=== PATIENT | female | born 1990 | race Caucasian/White ===

== ENCOUNTER 2025-06-22 18:15 | Emergency (ER) | payer OTHER, SELFPAY ==
--- OUTSIDE RECORDS SUMMARY | 2025-05-05 08:30 | XMS_ITS ---
Author Organization [facility] es Address [address] [place] [address] Care Team Providers Care Associate Store Leader Name Role Phone Stacey Martin Primary Care Provider Gunner Colby Unavailable [phone] Dr. Karson Osman Unavailable [phone] REASON FOR VISIT EXT #7, 8 AND SEAT FLIPPER Social History Sex Assigned At : Social History Observation Description Sex Assigned At Female Encounters Encounter Location Date Provider Diagnosis [facility] [address] [facility] [place] [address] 2024 Karson Osman Plan Of Treatment Next Appt Details Provider Name:Stacey eddy, 06/25/2025 11:00:00 AM, [address] [place], [address], Progress Notes * EREN BRUNSONDOB: [birth year] (35 yo F)Acc No.[id number]:05/05/2025 Patient:?EREN BRUNSON :?Karson Osman DDSDOB:1990???Age:35 Y???Sex: FemaleDate:05/05/2025Phone:[phone]:[address] [id number]:Stacey Martin Subjective: * Chief Complaints: * E XT #7, 8 AND SEAT FLIPPER * Electronic signature of Dr. Karson Osman , DMD, [id number] on 06/22/2025 at 07:08 PM ESTSign off status: Pending * Provider: Shimon Osman DDS Date: 07/05/2024 Generated for Printing/Faxing/eTransmitting on:?06/22/2025 07:08 PM EST
--- OUTSIDE RECORDS SUMMARY | 2025-05-27 06:30 | XMS_ITS ---
Author Organization [facility] es Address [address] [place] [address] Care Team Providers Care General Accounting Manager Name Role Phone Stacey Martin Primary Care Provider [phone] Gunner Colby Unavailable [phone] REASON FOR VISIT 1 month weight check, possible UTI Social History Sex Assigned At : Social History Observation Description Sex Assigned At Female Encounters Encounter Location Date Provider Diagnosis [facility] [address] [place] [address] 05/27/2025 Stacey Martin Plan Of Treatment Next Appt Details Provider Name:Stacey eddy, 06/25/2025 11:00:00 AM, [address] [place], [address], Progress Notes * EREN BRUNSONDOB: [birth year] (35 yo F)Acc No.[id number]:05/27/2025 Progress Notes Patient: Abida EREN GODOY :?Stacey Martin NPDOB:1990???Age:35 Y ???Sex:FemaleDate:05/27/2025Phone:[phone]:[address] [id number] Subjective: * Chief Complaints: * 1 month weight check, possible UTI * Electronic signature of Stacey Martin CNP on 06/22/2025 at 07:09 PM ESTSign off status: Pending * Provider: N icole E Martin, SCREEN PRINTER HELPER Date: 07/28/2024 Generated for Printing/Faxing/eTransmitting on:?06/22/2025 07:09 PM EST
--- OUTSIDE RECORDS SUMMARY | 2025-06-05 11:45 | XMS_ITS ---
Author Organization [facility] es Address [address] [place] [address] Care Team Providers Care Parachute Marker Name Role Phone Stacey Martin Primary Care Provider [phone] Gunner Colby Unavailable [phone] REASON FOR VISIT uti, medication not working Social History Sex Assigned At : Social History Observation Description Sex Assigned At Female Encounters Encounter Location Date Provider Diagnosis [facility] [address] [place] [address] 06/05/2025 Stacey Martin Plan Of Treatment Next Appt Details Provider Name:Stacey eddy, 06/25/2025 11:00:00 AM, [address] [place], [address], Progress Notes * EREN BRUNSONDOB: [birth year] (35 yo F)Acc No.[id number]:06/05/2025 Progress Notes Patient: Abida EREN GODOY :?Stacey Martin NPDOB:1990???Age:35 Y ???Sex:FemaleDate:06/05/2025Phone:[phone]:[address] [id number] Subjective: * Chief Complaints: * U ti, medication not working * Electronic signature of Stacey Martin CNP on 06/22/2025 at 07:08 PM ESTSign off status: Pending * Provider: Ban Martin NP Date: 1 08/06/2024 Generated for Printing/Faxing/eTransmitting on:?06/22/2025 07:08 PM EST
--- OUTSIDE RECORDS SUMMARY | 2025-06-09 05:27 | XMS_ITS ---
[facility] Address [address] [place] [address] Care Team Providers Care Hoop Punch And Coiler Operator Helper Name Role Phone Stacey Martin Primary Care Provider Gunner Colby Unavailable [phone] REASON FOR VISIT med refill Medications Medication SIG (Take, Route, Frequency, Duration) Notes Start Date End Date Status Trulicity 3 MG/0.5ML Solutio n Auto-injector as directed Subcutaneous weekly; Duration: 30 days 5Active Social History Sex Assigned At : Social History Observation Description Sex Assigned At Female Encounters Encounter Location Date Provider Diagnosis [facility] [address] [place] [address] 06/09/2025 Stacey Martin Neuropathy G62.9 and Hyperinsulinemia E16.1 Assessments Encounter Date Diagnosis (ICD Code) Assessment Notes Treatment Notes Treatment Clinical Notes Section Notes 06/09/2025 Neuropathy (ICD-10 - G62.9) 06/09/2025Hyperinsulinemia (ICD-10 - E16.1) Plan Of Treatment Medication Medication Name Sig Start Date Stop Date Notes Trulicity 3 MG/0.5ML Solutio n Auto-injector as directed Subcutaneous weekly; Duration: 30 days 05/13/2025 Next Appt Details Provider Name:Stacey eddy, 06/25/2025 11:00:00 AM, [address] [place], [address], Progress Notes * EREN BRUNSONDOB: [birth year] (35 yo F)Acc No.[id number]:06/09/2025 Patient:?EREN BRUNSON :1990???Age:35 Y???Sex:FemalePhone:[phone] Address:[address] [place] [address], [address] * Refills Refill Trulicity Solution Auto-injector, 3 MG/0.5ML, Subcutaneous, 4, as directed, weekly, 30 days,Refills=0 Subjective: * Chief Complaints: * M ed refill Assessment: * Assessment: 1.?Neuropathy - G62.9???2.?Hyperinsulinemia - E16.1??? Plan: * Treatment: Refill Trulicity Solution Auto-injector, 3 MG/0.5ML, as directed, Subcutaneous, weekly, 30 days, 4,Refills 0.?? * true * Date:?Generated for Printing/Faxing/eTransmitting on:?06/22/2025 07:09 PM EST
--- OUTSIDE RECORDS SUMMARY | 2025-06-12 10:30 | XMS_ITS ---
Author Organization [facility] es Address [address] [place] [address] Care Team Providers Care Health Program Specialist Name Role Phone Stacey Martin Primary Care Provider [phone] Gunner Colby Unavailable [phone] REASON FOR VISIT 1 month weight check Social History Sex Assigned At : Social History Observation Description Sex Assigned At Female Encounters Encounter Location Date Provider Diagnosis [facility] [address] [place] [address] 06/12/2025 Stacey Martin Plan Of Treatment Next Appt Details Provider Name:Stacey eddy, 06/25/2025 11:00:00 AM, [address] [place], [address], Progress Notes * EREN BRUNSONDOB: [birth year] (35 yo F)Acc No.[id number]:06/12/2025 Progress Notes Patient: Abida EREN GODOY :?Stacey Martin NPDOB:1990???Age:35 Y ???Sex:FemaleDate:06/12/2025Phone:[phone]:[address] [id number] Subjective: * Chief Complaints: * 1 month weight check Billing Information: * Procedure Codes: * Electronic signature of Stacey Martin CNP on 06/22/2025 at 07:09 PM ESTSign off status: Pending * Provider: Ban Martin NP Date: 08/13/2024 Generated for Printing/Faxing/eTransmitting on:?06/22/2025 07:09 PM EST
--- OUTSIDE RECORDS SUMMARY | 2025-06-20 04:00 | XMS_ITS ---
Author Organization [facility] es Address [address] [place] [address] Care Team Providers Care Spanish Interpreter Name Role Phone Stacey Martin Primary Care Provider [phone] Gunner Colby Unavailable [phone] REASON FOR VISIT 1 month weight check Social History Sex Assigned At : Social History Observation Description Sex Assigned At Female Encounters Encounter Location Date Provider Diagnosis [facility] [address] [place] [address] 06/20/2025 Stacey Martin Plan Of Treatment Next Appt Details Provider Name:Stacey eddy, 06/25/2025 11:00:00 AM, [address] [place], [address], Progress Notes * EREN BRUNSONDOB: [birth year] (35 yo F)Acc No.[id number]:06/20/2025 Progress Notes Patient: Abida EREN GODOY :?Stacey Martin NPDOB:1990???Age:35 Y ???Sex:FemaleDate:06/20/2025Phone:[phone]:[address] [id number] Subjective: * Chief Complaints: * 1 month weight check Billing Information: * Procedure Codes: * Electronic signature of Stacey Martin CNP on 06/22/2025 at 07:09 PM ESTSign off status: Pending * Provider: Ban Martin NP Date: 1 08/21/2024 Generated for Printing/Faxing/eTransmitting on:?06/22/2025 07:09 PM EST
[2025-06-22 18:30] VITALS: BP 132/99; PULSE 128; TEMP 36.6; O2SAT 97; BMI 34.3
--- NOTE | 2025-06-22 18:52 | ED.GENADUL1 ---
HPI HPI - General Adult General Chief complaint: Back Pain/Injury Stated complaint: Kidney Infection Time Seen by Provider: 06/22/25 18:38 Source: patient Mode of arrival: walk-in Limitations: no limitations History of Present Illness HPI narrative: Patient is a 35-year-old female presenting to the emergency department for evaluation of UTI symptoms and flank pain. Patient states that she has been seen at [facility] emergency department 5 times in the last 8 days. She states she has had multiple CAT scans, IV antibiotics, blood work, and urinalysis. She has been on oral antibiotics for the last 5 days. However, she states that despite all of these ED visits she continues to feel worse. She is complaining pain to the left upper part of her abdomen and flank. She states she has dysuria, hematuria, increased pressure in her bladder. She denies history of kidney stones, and was not diagnosed with a kidney stone during her visit to [facility]. She denies chest pain or shortness breath. No fevers or chills. Related Data Allergies Allergy/AdvReac Type Severity Reaction Status Date / Time lorazepam (From Ativan) Allergy Intermediate Hives Verified 06/22/25 18:34 IV contrast AdvReac Severe Vomiting Uncoded 06/22/25 18:34 Review of Systems ROS Status of ROS 10 or more systems reviewed and unremarkable except as noted in history and below PFSH PFSH Social History Little interest or pleasure in doing things: not at all Feeling down, depressed, or hopeless: not at all Exam Narrative Exam Narrative: CONSTITUTIONAL: Well-appearing, no acute distress, answering questions and following commands appropriately SKIN: Was warm and dry. EYES: Sclerae white. EARS, NOSE, THROAT: Moist oral mucosa. RESPIRATORY: Clear to auscultation bilaterally, no wheezes, crackles, or stridor, no use of accessory muscles CARDIOVASCULAR: Tachycardic rate and regular rhythm. There is no S3, S4, murmur, rub. GASTROINTESTINAL: Abdomen soft, nontender, nondistended. No rebound tenderness or guarding. No CVA tenderness. MUSCULOSKELETAL: No peripheral edema. NEUROLOGIC: Patient is awake and alert. Facies were symmetrical. Constitutional Vital Signs, click to edit/add: Last Vital Signs Temp 97.9 F 06/22/25 18:30 Pulse 128 H 06/22/25 18:30 Resp 18 06/22/25 18:30 BP 132/99 H 06/22/25 18:30 Pulse Ox 97 06/22/25 18:30 O2 Del Method Room Air 06/22/25 18:30 Course Vital Signs Vital signs: Vital Signs Temperature 97.9 F 06/22/25 18:30 Pulse Rate 128 H 06/22/25 18:30 Respiratory Rate 18 06/22/25 18:30 Blood Pressure 132/99 H 06/22/25 18:30 Pulse Oximetry 97 06/22/25 18:30 Oxygen Delivery Method Room Air 06/22/25 18:30 Temperature 97.9 F 06/22/25 18:30 Pulse Rate 128 H 06/22/25 18:30 Respiratory Rate 18 06/22/25 18:30 Blood Pressure 132/99 H 06/22/25 18:30 Pulse Oximetry 97 06/22/25 18:30 Oxygen Delivery Method Room Air 06/22/25 18:30 Medical Decision Making MDM Narrative Medical decision making narrative: Patient is a 35-year-old female presenting to the personal department with 8-day history of urinary symptoms and left flank pain. She has been on 2 different antibiotics over the last 5 days, but cannot recall the name of the medications. She has been seen at [facility] 5 times in the last 8 days for the same complaint. She states she was diagnosed with a kidney infection after CT, multiple blood tests, urinalysis, and IV antibiotics. Overall, the patient is well-appearing and in no acute distress. She has normal physical examination. Differential diagnose includes UTI, pyelonephritis, viral URI. Laboratory studies were obtained. Patient will be signed out to Dr. Ames pending workup. Discharge Plan Discharge Patient Disposition: Still a Patient
--- NOTE | 2025-06-22 19:03 | PC.NURSE ---
pt states she's been in [facility] [place] times this week. has gotten multiple IVs, fluids, IV ATBs, oral ATBs (even though none are seen in external pharmacy). She's received multiple pain meds, per her, including morphine and percocet.
--- OUTSIDE RECORDS SUMMARY | 2025-06-22 19:09 | XMS_ITS | Patient Health Record ---
Author Organization [employer] [facility] MarkMonitoric es Address [address] [place] [address] Care Team Providers Care Vp Construction Name Role Phone Stacey Martin Primary Care Provider Gunner Colby Unavailable [phone] Dr. Karson Osman Unavailable [phone] Sharri Carrillo Unavailable [phone] Allyssa Kimbrough Unavailable [phone] Patricia Frost Unavailable Adelina Guerrero Unavailable [phone] Mechelle Ferrer Unavailable [phone] Allergies Allergen (clinical drug ingredient) Drug/Non Drug Allergy documented on EMR Reaction Allergy Type Onset Date Status lorazepam Ativan hives Drug Allergy ActivehydroxyzineVistarilear itchesDrug AllergyActive Results Component Value Reference Range Flag Notes Urinalysis automated Reviewed date:01/28/2025 02:24:43 PM Interpretation: Performing Lab: Notes/Report: Urine-Color yellow AppearanceclearSpecific Gravity1.020pH6.0GlucosenegativeProteinnegativeOccult BloodnegativeBilirubinnegativeUrobilinogen,Semi-Qn0.2 mg/dLNitrite, Urine+ KetonesnegativeWBC Esterase+PAP [id number] Age Gdln Reviewed date:01/01/2025 02:23:12 PM Interpretation: Performing Lab: Notes/Report: Original Ordering Provider: [place] [address] [address] [facility] Laboratory[facility] Aptima HPV ACOGNote TESTS RESULT FLAG UNITS REF RANGE LAB Clinician Provided Cytology Information Source.............Cervix No. of containers..01 ThinPrep Vial Age Algo ACOG Radha... [age] FLAG LEGEND: L-Low Normal,H-High Normal,LL-Alert Low,HH-Alert High <-Panic Low,>-Panic High,A-Abnormal,AA-Critical Abnormal Performed at: 01 =G [facility] [address] Connie eSllers MD, Performed at: =[facility] [address] [id number] MD Marlo Rosales Gynecological Body SiteCERVIXNPerforming [facility] Laboratory unless otherwise specified [address] [place] [address] DFPWG - Complicated Genitourinary Infection (HTRx) Reviewed date:12/25/2024 03:44:16 PM Interpretation: Performing Lab: Notes/Report: Real-Time polymerase chain reaction (TaqMan qPCR) was utilized for detection for all tested organisms and resistance genes. Initiation of antimicrobial therapy prior to testing may affect results and can lead to the detection of non-living microorganisms. Detection of microbes must be correlated with current/recent antibiotic usage and patient signs and symptoms. Microbial sensitivity testing is not performed at this lab. Curing Machine Operator to CFU/mL equivalent thresholds were established based on studies using known CFU/mL urine specimens performed at [facility] in [place], [place]. Testing performed by [facility] ([address], [place] [address]; CLIA# [id number]; Acid Tender Ailin Sanchez, PhD, [facility])). Data analysis and report release for all tested samples is referred out to [facility] ([address], [place] [address]; CLIA# [id number]) and performed by their appropriately credentialled staff according to [facility] Requirements. This test was developed, and its performance characteristics determined by [facility]. It has not been cleared or approved by the FDA. However, such approval/clearance is not required, as the laboratory is regulated and qualified under CLIA to perform high-complexity testing. This test is used for clinical purposes and should not be regarded as investigational or for research. *Approximate copies of target nucleic acid per &micro;L (Low: <2,500 copies/&micro;L, Moderate: 2,500-50,000 copies/&micro;L, High: >50,000 copies/&micro;L) National Infectious Disease Consensus Data Potentially effective oral antibiotics, based on presence of detected microbes, antimicrobial resistance genes, and national antimicrobial sensitivity data (see Summary Antibiogram).Acinetobacter arozoaupg449.961 - 24.689 ppmAcinetobacter baumanniiNot Dftyrntm88.961 - 24.689 ppmAtopobium .02661.961 - 24.689 ppmAtopobium trjnzyrDzgmueew72.961 - 24.689 ppmBVAB 2,3 (bacterial vaginosis associated bacteria 2, 3); Mobiluncus lmh815.961 - 24.689 ppmBVAB 2,3 (bacterial vaginosis associated bacteria 2, 3); Mobiluncus sppNot Gffagoou29.961 - 24.689 ppmCandida albicans, parapsilosis, ougehbyjjp627.961 - 30.770 ppmCandida albicans, parapsilosis, tropicalisNot Fihyawou68.961 - 30.770 ppmCandida glabrata (Nakaseomyces glabratus)023.000 - 32.138 ppmCandida glabrata (Nakaseomyces glabratus)Not Ximynjkj87.000 - 32.138 ppmCandida krusei (Pichia kudriavzevii)023.000 - 32.271 ppmCandida krusei (Pichia kudriavzevii)Not Jhsfuyrl75.000 - 32.271 ppmChlamydia pdymymziber287.000 - 31.467 ppmChlamydia trachomatisNot Jqzzkbdv51.000 - 31.467 ppmCitrobacter rtetwqko281.961 - 24.689 ppmCitrobacter freundiiNot Qgswlsjw56.961 - 24.689 ppmEnterobacter aerogenes, jevapmt004.961 - 24.689 ppmEnterobacter aerogenes, cloacaeNot Yscrvvzp71.961 - 24.689 ppmEnterococcus faecalis, owmiohq441.961 - 24.689 ppmEnterococcus faecalis, faeciumNot Jlsygknj09.961 - 24.689 ppmEscherichia coli25.20597.961 - 24.689 ppmEscherichia phpwDpkfjdvo16.961 - 24.689 ppmGardnerella mrltepapd04.99 19.961 - 24.689 ppmGardnerella wlhwjxqtiTcmtvtns50.961 - 24.689 ppmKlebsiella pneumoniae, .961 - 24.689 ppmKlebsiella pneumoniae, oxytocaNot Zpkvosdj81.961 - 24.689 ppmMegasphaera (Types 1, 2)019.961 - 24.689 ppm Megasphaera (Types 1, 2)Not Kussxzqq13.961 - 24.689 ppmMorganella morganii0 19.961 - 24.689 ppmMorganella morganiiNot Sykqtqjh07.961 - 24.689 ppmNeisseria pufoepaabrf006.000 - 32.117 ppmNeisseria gonorrhoeaeNot Gjbenywu87.000 - 32.117 ppmProteus mirabilis, mywbwddn940.961 - 24.689 ppmProteus mirabilis, vulgarisNot Hkklnzal73.961 - 24.689 ppmPseudomonas tteqtefoki867.961 - 24.689 ppmPseudomonas aeruginosaNot Nvdqgzdu00.961 - 24.689 ppmSerratia llekfgkwel843.961 - 24.689 ppm Serratia marcescensNot Laiwojyf23.961 - 24.689 ppmStaphylococcus stimcv731.961 - 24.689 ppmStaphylococcus aureusNot Njslcznn74.961 - 24.689 ppmStreptococcus agalactiae (Group B Strep)019.961 - 24.689 ppmStreptococcus agalactiae (Group B Strep)Not Hlvdnxtx45.961 - 24.689 ppmStreptococcus pyogenes (Group A strep)0 19.961 - 24.689 ppmStreptococcus pyogenes (Group A strep)Not Qkekwaak23.961 - 24.689 ppmTrichomonas qgavacfkx977.000 - 32.119 ppmTrichomonas vaginalisNot Ddsioefz96.000 - 32.119 ppmermB, C; mefA19.1223.000 - 27.611 ppmermB, C; mefA Rmxcjhvl84.000 - 27.611 miwexhQ25.74134.000 - 31.199 lgtqkjFLnuthadk86.000 - 31.199 ppmtet B, tet M18.39539.000 - 27.778 ppmtet B, tet SSntrsltd84.000 - 27.778 ppmStaphylococcus coagulase-negative spp (Methicillin Resistant, MRSE) 28.05833.961 - 24.689 ppmStaphylococcus coagulase-negative spp (Methicillin Resistant, MRSE)Rzkyvscr40.961 - 24.689 ppmStaphylococcus .961 - 24.689 ppmStaphylococcus saprophyticusNot Cwxgiort67.961 - 24.689 ppmMycoplasma whoitmoxqc651.961 - 24.689 ppmMycoplasma genitaliumNot Srnawary98.961 - 24.689 ppmMycoplasma yozuleo438.961 - 24.689 ppmMycoplasma hominisNot Lbapexwo14.961 - 24.689 ppmUreaplasma xkanka396.961 - 24.689 ppmUreaplasma parvumNot Detected 19.961 - 24.689 ppmUreaplasma aluesuukrgx66.03157.961 - 24.689 ppmUreaplasma jqmtakthysrRcpunaqy21.961 - 24.689 ppmurine Reviewed date:01/28/2025 04:00:59 PM Interpretation:negative Performing Lab: Notes/Report: negativeresultnegativeGNURI - Complicated Genitourinary Infection (HTRx) Reviewed date:01/29/2025 11:06:19 AM Interpretation: Performing Lab: Notes/Report:Acinetobacter dtpzyrzio740.961 - 24.689 ppmAcinetobacter baumannii Not Tfyzmmlu70.961 - 24.689 ppmAtopobium lglckwy23.75170.961 - 24.689 ppm Atopobium zmasygqXmjwksnk96.961 - 24.689 ppmBVAB 2,3 (bacterial vaginosis associated bacteria 2, 3); Mobiluncus spp19.06595.961 - 24.689 ppmBVAB 2,3 (bacterial vaginosis associated bacteria 2, 3); Mobiluncus cmlAzpduzrk80.961 - 24.689 ppmCandida albicans, parapsilosis, ahzotegtgr593.000 - 30.347 ppmCandida albicans, parapsilosis, tropicalisNot Ustaubre00.000 - 30.347 ppmCandida glabrata (Nakaseomyces glabratus)023.000 - 31.618 ppmCandida glabrata (Nakaseomyces glabratus)Not Pohiybkm73.000 - 31.618 ppmCandida krusei (Pichia kudriavzevii)023.000 - 30.873 ppmCandida krusei (Pichia kudriavzevii)Not Wyqdolkb83.000 - 30.873 ppmChlamydia zkjyseaoyyz829.000 - 31.586 ppmChlamydia trachomatisNot Jioaulxk02.000 - 31.586 ppmCitrobacter .000 - 32.015 ppmCitrobacter freundiiNot Bfhxjyqe28.000 - 32.015 ppmEnterobacter aerogenes, .000 - 32.290 ppmEnterobacter aerogenes, cloacaeNot Wphzoujz41.000 - 32.290 ppmEnterococcus faecalis, .000 - 33.043 ppmEnterococcus faecalis, faeciumNot Kjxboccc87.000 - 33.043 ppmEscherichia coli17.72337.000 - 28.500 ppmEscherichia fwfpHslfxwka76.000 - 28.500 ppmGardnerella aongloyff48.349 19.961 - 24.689 ppmGardnerella tnzkdxmyeKyrjmfil30.961 - 24.689 ppmKlebsiella pneumoniae, xznyoir968.000 - 31.865 ppmKlebsiella pneumoniae, oxytocaNot Kcbwtcgb50.000 - 31.865 ppmMegasphaera (Types 1, 2)019.961 - 24.689 ppm Megasphaera (Types 1, 2)Not Qwzcyqtr98.961 - 24.689 ppmMorganella morganii0 19.961 - 24.689 ppmMorganella morganiiNot Vuqyhbbj69.961 - 24.689 ppmNeisseria fwsejlieqpj253.000 - 32.587 ppmNeisseria gonorrhoeaeNot Doscbbgb74.000 - 32.587 ppmProteus mirabilis, hebjkyym648.000 - 28.500 ppmProteus mirabilis, vulgarisNot Vsrbsnpf61.000 - 28.500 ppmPseudomonas kzvbxxszpo328.000 - 31.801 ppmPseudomonas aeruginosaNot Cslnhvgo77.000 - 31.801 ppmSerratia lthfqmdizu631.000 - 31.581 ppm Serratia marcescensNot Kxqywgoi20.000 - 31.581 ppmStaphylococcus bqgiuh858.000 - 31.595 ppmStaphylococcus aureusNot Nliiisrh33.000 - 31.595 ppmStreptococcus agalactiae (Group B Strep)026.000 - 32.435 ppmStreptococcus agalactiae (Group B Strep)Not Pdgvtpwh08.000 - 32.435 ppmStreptococcus pyogenes (Group A strep)0 19.961 - 24.689 ppmStreptococcus pyogenes (Group A strep)Not Owcbvogm85.961 - 24.689 ppmTrichomonas .000 - 31.995 ppmTrichomonas vaginalisNot Ouzqodjb70.000 - 31.995 ppmdfr (A1, A5), sul (1,2)17.4523.000 - 27.000 ppmdfr (A1, A5), sul (1,2)Qutouwgh56.000 - 27.000 ppmermB, C; mefA18.7723.000 - 27.500 ppmermB, C; dumBRodsbkrz35.000 - 27.500 ppmtet B, tet M18.64426.000 - 27.500 ppm tet B, tet OBkwlfjud65.000 - 27.500 ppmStaphylococcus epidermidis, haemolyticus, gtjzfetbzyo877.961 - 24.689 ppmStaphylococcus epidermidis, haemolyticus, lugdunensisNot Earqkoro48.961 - 24.689 ppmStaphylococcus udnlsidkrjapo839.961 - 24.689 ppmStaphylococcus saprophyticusNot Pzxlbpvp12.961 - 24.689 ppmMycoplasma jcifqgrtlj593.961 - 24.689 ppmMycoplasma genitaliumNot Tbttttxu59.961 - 24.689 ppmMycoplasma yhbbfwz42.81627.961 - 24.689 ppmMycoplasma amdunptKypigoob37.961 - 24.689 ppmUreaplasma jgwenq763.961 - 24.689 ppmUreaplasma parvumNot Detected 19.961 - 24.689 ppmUreaplasma .89736.961 - 24.689 ppmUreaplasma gfswwmiulvwJgdmpcyr90.961 - 24.689 ppmUrinalysis automated Reviewed date:04/10/2025 04:39:31 PM Interpretation: Performing Lab: Notes/Report: Urine-Colordark yellowAppearancecloudySpecific Gravity1.015pH5.0Glucosenegative Pmphhmq67+Occult Blood++Bilirubin1+Urobilinogen,Semi-Qn0.2 mg/dLNitrite, Urine gjrfbxcsLkgause21JAZ Hhzvvlei052++Urinalysis un-automated Reviewed date:04/30/2025 07:57:16 AM Interpretation: Performing Lab: Notes/Report: Urine-ColoryellowAppearanceclearSpecific Gravity1.020pH7.0GlucosenegProteinneg Occult BloodnegBilirubinnegUrobilinogen,Semi-QnnegNitrite, UrineposKetonesnegWBC Esterase3+PAP Reviewed date:01/01/2025 02:23:12 PM Interpretation: Performing Lab: Notes/Report: [facility] [address] [place] [address] Original Ordering Provider: DIMITRI KOCH AptimaNegativeNegative This nucleic acid amplification test detects fourteen high-risk HPV types (16,18,31,33,35,39,45,51,52,56,58,59,66,68) without differentiation. Performed at: [facility] [place] [address] [facility], [place] [id number] MD Marlo Rosales Performed at: =G [facility] [address] [address] [facility], [place] [id number] MD Marlo Rosales PAP [id number] TESTS RESULT FLAG UNITS REF RANGE LAB DIAGNOSIS: 02 NEGATIVE FOR INTRAEPITHELIAL LESION OR MALIGNANCY. Specimen adequacy: 02 Satisfactory for evaluation. Endocervical and/or squamous metaplastic cells (endocervical component) are present. Performed by: Bere Wang, Computer Science Instructor (ASCP) . 02 Note: Note 02 The Pap smear is a screening test designed to aid in the detection of premalignant and malignant conditions of the uterine cervix. It is not a diagnostic procedure and should not be used as the sole means of detecting cervical cancer. Both false-positive and false-negative reports do occur. Test Methodology: Note 02 This liquid based ThinPrep(R) pap test was screened with the use of an image guided system. HPV Genotype Reflex Note 02 Criteria not met, HPV Genotype not performed. FLAG LEGEND: L-Low Normal,H-High Normal,LL-Alert Low,HH-Alert High <-Panic Low,>-Panic High,A-Abnormal,AA-Critical Abnormal Performed at: 02 [facility] [address] [phone] Connie Sellers MD, Performing [facility] noteUNK - [facility] unless otherwise specified [address] [place] [address] Abdomen, Limited Reviewed date:02/03/2025 02:29:28 PM Interpretation: Performing Lab: Notes/Report: Source Facility: [facility] -[address] [place] [address] See Below For Report Original Ordering Provider: DIMITRI HARRELL Reviewed date:09/01/2024 04:11:16 PM Interpretation: Performing Lab: Notes/Report: [facility] [address] [place] [address] Original Ordering Provider: DIMITRI VALADEZGLUCOSE10055-199 mg/dLNUREA JOZBWIYX664-10 mg/dLNCREATININE0.80.5-1.3 mg/dLNCALCIUM8.88.9-11.1 mg/dLLSODIUM 058788-831 mmol/LNPOTASSIUM3.93.5-5.3 mmol/SXLJGGGQLN240343-703 mmol/LNCARBON IERBDFJ7136-21 mmol/LNALKALINE UBZQXHOBRAX3599-59 Int._Unit/LNBILIRUBIN0.20.0- 1.1 mg/dLNALBUMIN4.03.3-5.0 gm/dLNPROTEIN7.16.0-7.8 gm/dLNALANINE SYZNJPDTWIPPDSXI219-60 Int._Unit/LNASPARTATE PWLJAPKLBBEMBKAB807-57 Int._Unit/LN UREA NITROGEN/UJYUDSXHLV9938-88 No UnitsNANION AIL709-68 mEq/LNGLOBULIN3.11.4- 4.0 gm/dLNALBUMIN/GLOBULIN1.31.1-2.2NPerforming [facility] Laboratory unless otherwise specified [address] [id number] W7 Total Reviewed date:09/01/2024 04:16:16 PM Interpretation: Performing Lab: Notes/Report: [facility] [address] [place] [address] Original Ordering Provider: DIMITRI VLAADEZBRWZTULJPWSUPQIPZIHBRYD56928-501 ng/dLH Performed at: [address] [id number] PhD Gerald Mckeon Performing [facility] Laboratory unless otherwise specified [address] [id number] T4 & TSH Reviewed date:09/01/2024 04:08:52 PM Interpretation: Performing Lab: Notes/Report: [facility] [address] [place] [address] Original Ordering Provider: DIMITRI VALADEZTHYROXINE8.54.6-9.1 microgram/dLNTHYROTROPIN1.950.34-5.60 mcIU/mLNPerforming [facility] Laboratory unless otherwise specified [address] [place] [address] HgQe+Thyroglobulin Reviewed date:09/01/2024 04:08:52 PM Interpretation: Performing Lab: Notes/Report: [facility] [address] [place] [address] Original Ordering Provider: DIMITRI VALADEZTHYROGLOBULIN AB<1.00.0-0.9 International_Unit/mL Thyroglobulin Antibody measured by Bryce Tunde Methodology It should be noted that the presence of thyroglobulin antibodies may not be pathogenic nor diagnostic, especially at very low levels. The assay photocomposing machine operator has found that four percent of individuals without evidence of thyroid disease or autoimmunity will have positive TgAb levels up to 4 IU/mL. Performed at: [facility] [address] [place] [address] [id number] PhD Gerald Mckeon Performing [facility] Laboratory unless otherwise specified [address] [place] [address] Thyroid Perox.tpo Ab Reviewed date:09/01/2024 04:08:52 PM Interpretation: Performing Lab: Notes/Report: [facility] [address] [place] [address] Original Ordering Provider: DIMITRI VALADEZTHYROPEROXIDASE AB<90-34 International_Unit/mL Performed at: [facility] [id number] PhD Gerald Mckeon Performing [facility] Laboratory unless otherwise specified [address] [place] [address] Thyrotropin Receptor Antibody, Serum Reviewed date:09/01/2024 04:08:52 PM Interpretation: Performing Lab: Notes/Report: [facility] [address] [place] [address] Original Ordering Provider: DIMITRI VALADEZTHYROTROPIN RECEPTOR AB<1.10 0.00-1.75 Int._Unit/L Performed at: [facility] [id number] MD Galo Hurt Performing [facility] Laboratory unless otherwise specified [address] [place] [address] Vit B12 Reviewed date:09/01/2024 04:16:29 PM Interpretation: Performing Lab: Notes/Report: [facility] [address] [place] [address] Original Ordering Provider: DIMITRI VALADEZMRIKJCWKQWWUUEBQW46014-9005 pg/mLN Performing [facility] unless otherwise specified [address] [place] [address] .Thyroglobulin by BEBETO Reviewed date:09/01/2024 04:08:32 PM Interpretation: Performing Lab: Notes/Report: [facility] [address] [place] [address] Original Ordering Provider: DIMITRI VALADEZTHYROGLOBULIN10.01.5-38.5 ng/mL According to the National Academy of Clinical Biochemistry, the reference interval for Thyroglobulin (TG) should be related to euthyroid patients and not for patients who underwent thyroidectomy. TG reference intervals for these patients depend on the residual mass of the thyroid tissue left after surgery. Establishing a post-operative baseline is recommended. The assay limit of quantitation is 0.1 ng/mL Thyroglobulin measured by Bryce Hooven Immunometric Assay Performed at: [address] [id number] PhD Gerald Mckeon Performing [facility] unless otherwise specified [address] [address] eGFR Reviewed date:09/01/2024 04:08:52 PM Interpretation: Performing Lab: Notes/Report: [facility] [address] [place] [address] Original Ordering Provider: DIMITRI VALADEZeGFR99>=59 mL/min/1.73 m2N Performing [facility] unless otherwise specified [address] [place] [address] HgbA1c Reviewed date:04/24/2025 08:09:00 AM Interpretation: Performing Lab: Notes/Report: [facility] [address] [place] [address] Original Ordering Provider: DIMITRI Hall A1C %5.6<=5.9 %NPerforming LabsSelect [facility] unless otherwise specified [address] [place] [address] Hpdtgbg Lvl Reviewed date:04/24/2025 08:09:00 AM Interpretation: Performing Lab: Notes/Report: [facility] [address] [place] [address] Original Ordering Provider: DIMITRI SERNAOENInsulin Lvl48.92.6-24.9 mcIU/mLH Performed at: [address] [id number] PhD Gerald Mckeon Performing [facility] Laboratory unless otherwise specified [address] [place], [place] [id number] Reason For Referral Reason please send patient labs or inform office they are present at [facility] Diagnosis 1 High thyroid hormone level (R79.89) Referral Organization [facility] Referring Provider First Name Gunner Referring Provider Last Name Lasha Referring Provider Speciality Behavioral Health Referred Provider Specialty Endocrinolog y Referral Priority Routine Reason PT N/S APPT 03/10 P atient requesting referral for ongoing abdominal pain. Please attach recent abdominal U/S Diagnosis 1 Abdominal pain (R10. 9) Referral Organization [facility] Referring Provider First Name Mechelle Referring Provider Last Name Nabil Referring Provider Speciality Nurse Rosanne lyon Referred Provider Herrera Luis [employer], . Referred Provider Specialty Gastroentero logy Referral Priority Routine Medications Medication SIG (Take, Route, Frequency, Duration) Notes Start Date End Date Status Gabapentin 600 MG Tablet 1 tablet Orally 4 times a day; Duration: 30 days Not-Taking/PRNGabapentin 800 MG Tablet1 tablet Orally 3 times a day; Duration: 30 days5ActiveARIPiprazole 20 MG Tablettake 1 tablet by mouth once daily; Duration: 30 daysActiveVyvanse 60 MG Capsule1 capsule in the morning Orally Once a day; Duration: 30 daysDN until 02-02-25085ActiveTrulicity 3 MG/0.5ML Solution Auto-injectoras directed Subcutaneous weekly; Duration: 30 days5ActivetraZODone HCl 100 MG Tablet1 tablet at bedtime as needed Orally Once a day; Duration: 30 days4ActiveQUEtiapine Fumarate 200 MG Tablettake 1 tablet by mouth at bedtime Orally Once a day; Duration: 30 days ActiveALPRAZolam 1 MG Tablet 1 tablet Orally Twice a day; Duration: 30 days As needed 5ActiveAlbuterol Sulfate HFA 108 (90 Base) MCG/ACT Aerosol Solution2 puffs Inhalation as needed (prn); Duration: 30 daysActiveMethenamine Hippurate 1 GM Tablet1 tablet Orally daily; Duration: 90 days502/6Active Immunizations Vaccine Route Administration Date Status Comme nts Influenza 3+ PRIVATE IM Intramuscular 05/22/2019 Administe red Social History Tobacco Use: Social History Observation Description Date Details (start date - stop date) Unknown Sex Assigned At : Social History Observation Description Sex Assigned At Female Social History GeneralSocial InfoQuestionAnswerNotesTransition of Care:ER/UC/hospital since last office visit?Yes, report on [facility] ER for poison susan 6 days ago. Specialist seen since last office visit?NoSubstance abuse/mental health issues of patient/familyPatient -DeniesAbility to understand healthcare/treatment Patient:GoodSexual Hx:Had sex in the last 12 months (vaginal, oral, or anal)?Yes ? withMen only? Use protection?NoHave you ever had an STD?NoLMP:08/19/2020 Social/Support Concerns:Patient:NoBehaviors affecting healthPoor/Risky Behaviors:Nutrition-, Second Hand Smoke-Communication Barrier:Language Barrier?: NoFood Insecurity ScreeningSocial InfoQuestionAnswerNotesFood Insecurity ScreeningWithin the last 12 months, have you been worried about your food running out before you received money to buy more?NoWithin the last 12 months, did the food you buy not last, and you didn't have money to buy more?NoWithin the last 12 months, have you had any difficulty affording to eat balanced meals including all food groups (fruits, vegetables, protein, and whole grains)?No Drug/Alcohol:Social InfoQuestionAnswerNotesAUDIT-C (Standard)Did you have a drink containing alcohol in the past year?XqQruuto9RcorbawooesircWnxbhjtfHmarcgq Use:Social InfoQuestionAnswerNotesTobacco Control (Standard)Tobacco use:Uses tobacco in other formsAdditional Findings: Tobacco usere-cigaretteSection Notes: Pt also VAPES.and 2-3 cigare ttes a day Pt also VAPES.and 2-3 cigare ttes a day Pt also VAPES.and 2-3 cigare ttes a day Pt also VAPES.and 2-3 cigare ttes a day Pt also VAPES. Pt also VAPES.and 2-3 cigare ttes a day Pt also VAPES.and 2-3 cigare ttes a day Pt also VAPES.and 2-3 cigare ttes a day Pt also VAPES.and 2-3 cigare ttes a day Pt also VAPES.and 2-3 cigare ttes a day Pt also VAPES.and 2-3 cigare ttes a day Pt also VAPES. Pt also VAPES.and 2-3 cigare ttes a day Pt also VAPES.and 2-3 cigare ttes a day Pt also VAPES.and 2-3 cigare ttes a day Pt also VAPES. Pt also VAPES. Pt also VAPES.and 2-3 cigare ttes a day Pt also VAPES.and 2-3 cigare ttes a day Pt also VAPES. Pt also VAPES.and 2-3 cigare ttes a day Pt also VAPES. Pt also VAPES.and 2-3 cigare ttes a day Pt also VAPES. Pt also VAPES.and 2-3 cigare ttes a day Pt also VAPES. Pt also VAPES. Pt also VAPES.and 2-3 cigare ttes a day Pt also VAPES. Pt also VAPES. Pt also VAPES. Pt also VAPES.and 2-3 cigare ttes a day Pt also VAPES.and 2-3 cigare ttes a day Pt also VAPES.and 2-3 cigare ttes a day Pt also VAPES. Pt also VAPES. Pt also VAPES. Pt also VAPES.and 2-3 cigare ttes a day Pt also VAPES.and 2-3 cigare ttes a day Pt also VAPES. Pt also VAPES. Problems Problem Type SNOMED Code ICD Code Onset Dates Problem Status W/U Status Risk Notes Problem Information temporarily unavailable Iron deficiency (E61.1) ActiveconfirmedProblemInformation temporarily unavailableMagnesium deficiency (E61.2)ActiveconfirmedProblemInformation temporarily unavailableNicotine dependence, unspecified, uncomplicated (F17.200)ActiveconfirmedProblem Information temporarily unavailableFibromyalgia (M79.7)ActiveconfirmedProblem Information temporarily unavailableBipolar 1 disorder (F31.9)Activeconfirmed ProblemInformation temporarily unavailableAmenorrhea (N91.2)Activeconfirmed ProblemInformation temporarily unavailableHypoglycemia (E16.2)Activeconfirmed ProblemInformation temporarily unavailableNeuropathy (G62.9)Activeconfirmed ProblemInformation temporarily hgtbhgcwpcsZ11 deficiency (E53.8)Activeconfirmed ProblemInformation temporarily unavailableLupus (M32.9)ActiveconfirmedProblem Information temporarily unavailableAbnormal drug screen (R89.2)Activeconfirmed ProblemInformation temporarily unavailableMigraine with aura and without status migrainosus, not intractable (G43.109)ActiveconfirmedProblemInformation temporarily unavailableDyspnea on exertion (R06.09)ActiveconfirmedProblem Information temporarily unavailableGeneralized anxiety disorder (F41.1)Active confirmedProblemInformation temporarily unavailableAttention deficit hyperactivity disorder (ADHD), combined type (F90.2)ActiveconfirmedProblem Information temporarily unavailableRaynaud's phenomenon without gangrene (I73.00)ActiveconfirmedProblemInformation temporarily unavailable Gastroesophageal reflux disease with esophagitis without hemorrhage (K21.00) ActiveconfirmedProblemInformation temporarily unavailableGastroesophageal reflux disease, unspecified whether esophagitis present (K21.9)ActiveconfirmedProblem Information temporarily unavailableSjogren's syndrome, with unspecified organ involvement (M35.00)ActiveconfirmedProblemInformation temporarily unavailable Menstrual period late (N92.6)ActiveconfirmedProblemInformation temporarily unavailableHyperinsulinemia (E16.1)Activeconfirmed Vital Signs Heart Rate 129 /min 05/13/2025 Asqjyvukicx75.5 degrees Lfhoqnqtip91/18/2025Respiratory Rate19 /min04/29/2025 Bekozjgn05 %05/13/2025lood pressure jjxxkxjil12 mm Hg05/13/20250372Gfvpvd58ic in 05/13/2025lood pressure tcwmgdeq834 mm Hg05/13/20251605Somkzj916.2 lbs107/13/2024MI 35.22 kg/m205/13/2025 Encounters Encounter Location Date Provider Diagnosis [facility] [address] [place] [address] 06/27/2024 Patricia Frost [facility] [place] [address]/06/2025 Kip SoviakAttention deficit hyperactivity disorder (ADHD), combined type F90.2 [facility] [place] [address]/11/2024 [facility] [place] [address]/[facility]Ot[facility] Centerk[address] [place] [address] 08/15/2024[facility] [place] [address]/Kip SoviakAttention deficit hyperactivity disorder (ADHD), combined type F90.2 and Bipolar [address] [address] [place] [address]/[facility] Centerdeven Frost [facility] M79.7[facility] [address] [place] [address]/[facility]ak[facility] [place] [address]/09/2024Stco[facility] hospitalmignon [facility] [place] [address]/11/2024[facility] CenterBirth control counseling Z30.09[facility] [place] [address]/Kip SoviakAttention deficit hyperactivity disorder (ADHD), combined type F90.2[facility] [address] [place] [address]/heri SlingwineAttention deficit hyperactivity disorder (ADHD), combined type F90.2[facility] [address] [place] [address]/Kip SoviakBipolar 1 disorder F31.9[facility] [place] [address]/Kip SoviakSt. [facility] [address] [place] [address]/ Patricia ReneeaultBirth control counseling Z30.09[facility] [place] [address]/07/2024Jasper SchoenNeuropathy G62.9 [facility] [address] [place] [address]/10/2024 Agnish GholekarSt. [facility] [address]wj[address] [place] [address]/11/2024Kip SoviakAttention deficit hyperactivity disorder (ADHD), combined type F90.2[facility] [address]wbz[address] [place] [address]/02/2025Kip SoviakAttention deficit hyperactivity disorder (ADHD), combined type F90.2F[facility] [address] [place] [address]/Jasper SchoenHyperinsulinemia E16.1Fselect [facility] [address] [place] [address]/Kip SoviakBirth control counseling Z30.09 and Bipolar 1 disorder F31.9S [address] [place] [address]/07/2024Jasper SchoenPain of both breasts N64.4Fselect [facility] [address]ern[address] [place] [address]/02/2025[facility] HospitaloeStephen Ville [id number] [place] [address]/02/[address]25[facility] [address] [place] [address]/04/2025 Adelina HyltonAttention deficit hyperactivity disorder (ADHD), combined type F90.2[facility] [address] [place] [address] 01/27/2025Tracey HyltonAttention deficit hyperactivity disorder (ADHD), combined type F90.2[facility] [address] [place] [address] 01/29/2025[place] [place] [address] [place], [place] [address] [place] [address]/11/2024[place] [address] [address] [place] [address]/[address] [place], [place] [id number] [place] [address]/Jasper SchoenNeuropathy G62.9[facility] [place] [address]/09/2024Jasper SchoenPain of both breasts N64.4[facility] [address] [address]/[facility] [place] [address] 05/13/2025Nic[facility] FleFour [facility] [place] [address]/05/2025Nicole FlemingBipolar 1 disorder F31.9[facility] [address] [place] [address]/Nicole FlemingNeuropathy G62.9 and Hyperinsulinemia E16.1[facility] [address] [address]/[address] [place] [address] SchoenCervical cancer screening Z12.4 ; Well female exam with routine gynecological exam Z01.419 ; Screening for STD (sexually transmitted disease) Z11.3 ; Pain of both breasts N64.4 and Lymph node enlargem ent R59.9[facility] [address] [address]/[address] [place] [address] SchoenAcute UTI (urinary tract infection) N39.0 ; Left upper quadrant abdominal pain R10.12 ; Foul smelling urine R82.90 and Possible Z32.00[facility] [address] [address]/Jasper SchoenAcute UTI N39.0 ; Attention deficit hyperactivity disorder (ADHD), combined type F90.2 ; Hyperinsulinemia E16.1 and Neuropathy G62.9[facility] [address] [address]/09/2024Jasper SchoenRecurrent UTI N39.0[facility] [address] [address]/Nicole FlemingNicotine dependence, unspecified, uncomplicated F17.200 ; Hyperinsulinemia E16.1 ; Neuropathy G62.9 and Recurrent UTI N39.0[facility] [address] [address] 02/27/2025Jasper SchoenNeuropathy G62.9 ; Abdominal pain R10.9 and Viral illness B34.9[facility] [address] [address]/07/2024Jasper Nabil Hyperinsulinemia E16.1[facility] [address] [address] 12/02/2024Jasper SchoenNeuropathy G62.9 and Sprain of right ankle, unspecified ligament, initial encounter S93.401[address] [address]/Stephanie zzzBreaultNicotine dependence, unspecified, uncomplicated F17.200 ; Neuropathy G62.9 ; Iron deficiency E61.1 and UTI symptoms R39.9[facility] [address] [address]/01/2025 Patricia zzzBreaultNicotine dependence, unspecified, uncomplicated F17.200 and Cellulitis of left axilla L03.112[facility] [address] [address]/06/2024Stephanie zzzBreaultNicotine dependence, unspecified, uncomplicated F17.200 ; Fibromyalgia M79.7 and Hyperinsulinemia E16.1[facility] Roland [address] [facility] [address]/Stephanie Ellapus M32.9 ; Arthralgia of multiple joints M25.50 ; Sjogren's syndrome, with unspecified organ involvement M35.00 ; Abnormal thyroid blood test R79.89 and Neuropathy G62.9[facility] Epdbgju055 [facility] [place] [place] [address]/gnish Gholekar Partial loss of teeth, unspecified cause, class I K08.401 and Encounter for dental examination and cleaning with abnormal findings Z01.21[facility] Zacffuu319 [facility]ENTERDICT [place] [place] [address]/gnish GholekarDental caries on pit and fissure surface penetrating into dentin K02.52[facility] Njiykpe669 [facility] [place] [address]/Kip SoviakBipolar 1 disorder F31.9[facility] Yttuhsi392 [facility]CT [place] [place] [address]/Kip SoviakAttention deficit hyperactivity disorder (ADHD), combined type F90.2 and Bipolar 1 disorder F31.9 [facility] Ssobcbb533 [facility] [place] [place] [address]/05/2025Kip SoviakBipolar 1 disorder F31.9 and Attention deficit hyperactivity disorder (ADHD), combined type F90.2[facility] Inbctap273 [facility] [place] [address]/Kip Soviak Bipolar 1 disorder F31.9[facility] [address] [place] [address] 10/07/2024Kip SoviakBipolar 1 disorder F31.9 and Attention deficit hyperactivity disorder (ADHD), combined type F90.2[facility] Dedkzpc976 [facility] [place] [address]/gnish GholekarOther dental procedure status Z98.818 and Encounter for dental examination and cleaning with abnormal findings Z01.21 Assessments Encounter Date Diagnosis (ICD Code) Assessment Notes Treatment Notes Treatment Clinical Notes Section Notes 11/05/2024 Bipolar 1 disorder (ICD-10 - F31 .9) Patient is well controlled on current treatment plan which involves the use of lybalvi, which is a second generation antipsychotic combination medication with Dextramorphan which is an appetite suppressant and can cause false positives for opioids.5Acute UTI (urinary tract infection) (ICD-10 - N39.0)Take medication as directed. Urine analysis shows abnormalities today in office. Urine culture willbe sent to lab. Will call with results if resistance present to antibiotic. Increase fluid intake. Follow hygiene guidelines such as wiping front to back, avoid using perfumed lotions, bath beads, bubble bath. Prevention tips include urinating after sexual intercourse. Follow up with our office if no improvement of symptoms.04/29/2025Recurrent UTI (ICD-10 - N39.0)Discussed recurrence of UTIs. Urine analysis shows abnormalities today in office. Will start patient on antibiotic and then start daily methenamine daily for 3 months for prevention of UTIs. Increasefluid intake. Follow hygiene guidelines such as wiping front to back, avoid using perfumed lotions,bath beads, bubble bath. Prevention tips include urinating after sexual intercourse. Follow up withour office if no improvement of symptoms or symtpoms present again. Patient verbalizes understanding.5Acute UTI (ICD-10 - N39.0)Take medication as directed. Urine analysis shows abnormalities today in office and will treat based on clinical presentation and urine dipstick. Encouraged to increase fluid intake. Follow hygiene guidelines such as wiping front to back, avoid using perfumed lotions, bath beads, bubble bath. Prevention tips include urinating after sexual intercourse. Follow up with our office if syptoms persist or worsen after antibiotic treatment. Patient verbalizes understanding.09/25/2024ttention deficit hyperactivity disorder (ADHD), combined type (ICD-10 - F90.2)11/25/2024 Neuropathy (ICD-10 - G62.9)10/24/2024Nicotine dependence, unspecified, uncomplicated (ICD-10 - F17.200)10/24/2024Fibromyalgia (ICD-10 - M79.7) 05/13/2025Nicotine dependence, unspecified, uncomplicated (ICD-10 - F17.200) 05/13/2025Hyperinsulinemia (ICD-10 - E16.1) Last seen on 04/10. At this time she was taking Trulicity 3mg for weight loss and Vyvanse for ADHD through her therapist. She decided to discontinue these medications so she could start Adipex. She states she does not like the side effects and notices her ADHD symptoms are worsened. She has had a 2lb weight gain since her last appointment. She is requesting to restart Trulicity and Vyvanse. She has an appointment today with therapist. Discussed restarting Trulicity 3mg. Discussed proper administration and side effects. Educated on continuing lifestyle modifications including engaging in regular exercise, limiting salt, fast foods and processed foods, and eating a more whole foods based diet. Will follow up in 1 month for wieght check. - Stop Adipex - Start Trulicity 3mg - Start Vyvanse through therapist Kip - Follow up in 1 month for re-evaluation 06/06/2025ipolar 1 disorder (ICD-10 - F31.9)06/09/2025Neuropathy (ICD-10 - G62.9)02/21/2025Neuropathy (ICD-10 - G62.9)02/27/2025bdominal pain (ICD-10 - R10.9)Abdominal pain continued on and off. Reviewed negative abdominal U/S. Patient requesting referral to GI for additional workup and imaging. Referral placed.02/27/2025Neuropathy (ICD-10 - G62.9)Improved with medication, gabapentin. OARRS reviewed and compliant. Continue with specialists as needed. If you develop any pain, swelling, change in color of the LE, go to the ER. Patient verbalizesunderstanding.02/27/2025Pain of both breasts (ICD-10 - N64.4) 03/27/2025Hyperinsulinemia (ICD-10 - E16.1)Discussed Adipex is a stimulant and unable to prescribe with taking daily Vyvance. Patient is not willing to stop Vyvance during weight loss journey. Discussed increasing Trulicity vs weight managment referral. Increase Trulicity to 3mg. Follow up in 2 months to reassess, and discussed increase to 4.5 mg at that time if well tolerated. Patient verbalizes understanding. Lab orders gvien to patient. Will call with results.12/25/2024Pain of both breasts (ICD-10 - N64.4)01/06/2025ipolar 1 disorder (ICD-10 - F31.9) increase abilify to 20mg. . Patient will continue current treatment plan. Patient verbally acknowledges understanding instructions including medication education and has no further questions comments or concerns at this time. . Follow in 1 Month . Recommended treatment for Bipolar disorder includes FDA approved and OFF label medications: second generation antipsychotics and mood stabilizers. Discussed life threatening side effect of Lamotrigine. Pt is to monitor for new skin rashes or sensation of a sunburn or itchiness or redness, mouth sores or sores in mucus membranes, and call provider immediately and or go to ER, and stop the medication. Second generation antipsychotic medications can cause headache, drowsiness, agitation, dizziness, nausea, or extrapyramidal symptoms such as tremors, muscle spasms, slowness of movement or jerkingof muscles. . Stable . The patient verbalizes understanding with all questions answered thoroughly and is in agreement with treatment plan. . Continue current treatment. Call for problems . GOALS: . Maintain medication regimen . _Improve mood stability . _Improve anxiety control . _Improve social and interpersonal functioning . Patient/Guardian will call sooner if symptoms worsen. Patient understands to go to ER if needed if symptoms become severe. . Crisis Intervention plan was discussed and agreed upon. Patient/Guardian will call 911 in case of emergency. Emergency contact information was provided to the patient/guardian. . Pharmacological management: . Alternative medication plans were discussed with the patient/guardian. All relevant side effects and potential adverse effects were discussed with the patient/guardian. Standard cautions and potential benefits were discussed. Patient/Guardian consented to the start/continuation of the treatment. 01/06/2025ttention deficit hyperactivity disorder (ADHD), combined type (ICD-10 - F90.2) . FDA approved stimulant medication for this age group. Discussed/Denies adverse effects from medication including HTN, tachycardia, insomnia, irritability, headache, or decreased appetite. . All relevant and serious adverse effects were discussed. Standard precautions and potential benefits were discussed. Patient/Guardian consented to begin medication/ continue treatment plan . Patient continues to meet criteria for attention deficit hyperactivity disorder. Pt does not meet criteria for bipolar disorder, major depressive disorder, or other persistent mood disorders. Will continue to monitor the patient for presentation of new symptoms or behaviors. . Continue current treatment; tolerating meds well, compliant; call for problems; questions answered satisfactorily, agreeable to treatment plan . GOALS: . Maintain medication regimen _Improve social and interpersonal functioning _Improve attention and or hyperactivity . follow up 3 months . Crisis Intervention plan was discussed and agreed upon. Patient/Guardian will call 911 in case of emergency. Emergency contact information was provided to the patient/guardian. . OARRS reviewed . 01/27/2025ttention deficit hyperactivity disorder (ADHD), combined type (ICD-10 - F90.2)09/11/2024Nicotine dependence, unspecified, uncomplicated (ICD-10 - F17.200)09/11/2024Neuropathy (ICD-10 - G62.9)Will continue medications today since patient states that she feels stable on doses01/28/2025Left upper quadrant abdominal pain (ICD-10 - R10.12)Due to ongoing left upper quadrant pain, I recommend additional imaging to further investigate. U/Sorder placed.11/21/2024 control counseling (ICD-10 - Z30.09)11/29/2024ttention deficit hyperactivity disorder (ADHD), combined type (ICD-10 - F90.2)12/02/2024 Neuropathy (ICD-10 - G62.9)Improved with medication, gabapentin. Continue medication. OARRS reviewed and compliant. If you develop any pain, swelling, change in color of the lower extremities, go to the ER. Follow up in 3 months. Patient verbalizes understanding.12/02/2024Sprain of right ankle, unspecified ligament, initial encounter (ICD-10 - S93.401A)Use RICE therapy as discussed: Rest, Ice Compression, Elevate. Apply ice to affected area 3-4 timesdaily (Do not place ice source directly on skin, must cover with towel-like material). Take medication as directed. Rest and elevate sore extremity as much as possible. Continue Naproxen as prescribed by ER. Contact office if no improvement of symptoms and we will help you get into a specialist. Patient verbalizes understanding.12/11/2024Hyperinsulinemia (ICD-10 - E16.1)12/19/2024 control counseling (ICD-10 - Z30.09)5Cervical cancer screening (ICD-10 - Z12.4)No concerns on pelvic exam, pap cytology cultures obtained via spatula and brush tools. Completed Healthtrack swab for STIs will be sent out with [employer] today. Will call pt with results from both STI swab and pap cytology results. Pt verbalized understanding. Follow up in 1 year or as needed. 12/24/2024Well female exam with routine gynecological exam (ICD-10 - Z01.419)WWE completed today, no significant abnormalities found. External and internal exam normal and healthy. Discussed using protection during intercourse. Discussed importance of SBE, if you ever feel anarea of concern, including if your unsure to f/u in office. Abnormal findings include new lump, tenderness, changes in skin texture/dimpling, or change nipple appearance or discharge. Abnormal vaginal bleeding is also a concern, please return to office if you experience this or change in vaginal d/c. Severe abdominal pain, heavy vaginal bleeding, go to the ER. Patient verbalizes understanding.5Attention deficit hyperactivity disorder (ADHD), combined type (ICD-10 - F90.2)10/01/2024Nicotine dependence, unspecified, uncomplicated (ICD-10 - F17.200)10/01/2024ellulitis of left axilla (ICD-10 - L03.112)Use medications as directed. Try to apply warm compresses to area before applying daily. Wash area with gentle soap, do not use rubbing alcohol, bleach or peroxide. FOllow up if no improvement of symptoms in 2 weeks5Bipolar 1 disorder (ICD-10 - F31.9) Patient will transition to lybalvi, olanzapine has caused extreme weight gain. Follow up in 30 daysto discuss and evaluate. Patient will continue current treatment plan. Patient verbally acknowledges understanding instructions including medication education and has no further questions comments orconcerns at this time. . Follow in 1 Month . Recommended treatment for Bipolar disorder includes FDA approved and OFF label medications: second generation antipsychotics and mood stabilizers. Discussed life threatening side effect of Lamotrigine. Pt is to monitor for new skin rashes or sensation of a sunburn or itchiness or redness, mouth sores or sores in mucus membranes, and call provider immediately and or go to ER, and stop the medication. Second generation antipsychotic medications can cause headache, drowsiness, agitation, dizziness, nausea, or extrapyramidal symptoms such as tremors, muscle spasms, slowness of movement or jerkingof muscles. . Stable . The patient verbalizes understanding with all questions answered thoroughly and is in agreement with treatment plan. . Continue current treatment. Call for problems . GOALS: . Maintain medication regimen . _Improve mood stability . _Improve anxiety control . _Improve social and interpersonal functioning . Patient/Guardian will call sooner if symptoms worsen. Patient understands to go to ER if needed if symptoms become severe. . Crisis Intervention plan was discussed and agreed upon. Patient/Guardian will call 911 in case of emergency. Emergency contact information was provided to the patient/guardian. . Pharmacological management: . Alternative medication plans were discussed with the patient/guardian. All relevant side effects and potential adverse effects were discussed with the patient/guardian. Standard cautions and potential benefits were discussed. Patient/Guardian consented to the start/continuation of the treatment. 5Attention deficit hyperactivity disorder (ADHD), combined type (ICD-10 - F90.2) Increase Vyvanse to 60 mg follow-up in 30 days to discuss and evaluate. OARRS reviewed . Informed consent obtained: YES, we discussed the diagnosis/diagnoses, the treatment options, treatment(s) recommended vs. no treatment. We discussed risks and benefits of treatment options, treatmentrecommendations vs. no treatment. . . Patient continues to meet criteria for attention deficit hyperactivity disorder. Pt does not meet criteria for bipolar disorder, major depressive disorder, or other persistent mood disorders. Will continue to monitor the patient for presentation of new symptoms or behaviors. . . FDA approved stimulant medication for this age group. Discussed/Denies adverse effects from medication including HTN, tachycardia, insomnia, irritability, headache, or decreased appetite. . . Discussed lifestyle/diet changes to help improve BMI. Recommend increasing activity, reducing portion sizes, limiting carbohydrates, increasing protein as appropriate. Discussed referral to dieticianif problem persists. . . Continue current treatment plan, tolerating meds well, compliant; call for problems . GOALS: Maintain medication regimen Maintain mood stability Maintain anxiety stability Maintain social and interpersonal functioning Maintain attention and hyperactivity . . Currently at low risk for self harm. Denies ongoing feelings of hopelessness. Denies ongoing suicidal ideation, intent or plan in session. . 5Bipolar 1 disorder (ICD-10 - F31.9)5Bipolar 1 disorder (ICD- 10 - F31.9) Patient will continue current treatment plan. Patient verbally acknowledges understanding instructions including medication education and has no further questions comments or concerns at this time. . Follow in 2 Month . Recommended treatment for Bipolar disorder includes FDA approved and OFF label medications: second generation antipsychotics and mood stabilizers. Discussed life threatening side effect of Lamotrigine. Pt is to monitor for new skin rashes or sensation of a sunburn or itchiness or redness, mouth sores or sores in mucus membranes, and call provider immediately and or go to ER, and stop the medication. Second generation antipsychotic medications can cause headache, drowsiness, agitation, dizziness, nausea, or extrapyramidal symptoms such as tremors, muscle spasms, slowness of movement or jerkingof muscles. . Stable . The patient verbalizes understanding with all questions answered thoroughly and is in agreement with treatment plan. . Continue current treatment. Call for problems . GOALS: . Maintain medication regimen . _Improve mood stability . _Improve anxiety control . _Improve social and interpersonal functioning . Patient/Guardian will call sooner if symptoms worsen. Patient understands to go to ER if needed if symptoms become severe. . Crisis Intervention plan was discussed and agreed upon. Patient/Guardian will call 911 in case of emergency. Emergency contact information was provided to the patient/guardian. . Pharmacological management: . Alternative medication plans were discussed with the patient/guardian. All relevant side effects and potential adverse effects were discussed with the patient/guardian. Standard cautions and potential benefits were discussed. Patient/Guardian consented to the start/continuation of the treatment. 5Attention deficit hyperactivity disorder (ADHD), combined type (ICD-10 - F90.2) . FDA approved stimulant medication for this age group. Discussed/Denies adverse effects from medication including HTN, tachycardia, insomnia, irritability, headache, or decreased appetite. . All relevant and serious adverse effects were discussed. Standard precautions and potential benefits were discussed. Patient/Guardian consented to begin medication/ continue treatment plan . Patient continues to meet criteria for attention deficit hyperactivity disorder. Pt does not meet criteria for bipolar disorder, major depressive disorder, or other persistent mood disorders. Will continue to monitor the patient for presentation of new symptoms or behaviors. . Continue current treatment; tolerating meds well, compliant; call for problems; questions answered satisfactorily, agreeable to treatment plan . GOALS: . Maintain medication regimen _Improve social and interpersonal functioning _Improve attention and or hyperactivity . follow up 3 months . Crisis Intervention plan was discussed and agreed upon. Patient/Guardian will call 911 in case of emergency. Emergency contact information was provided to the patient/guardian. . OARRS reviewed . 06/27/2024Other dental procedure status (ICD-10 - Z98.818)07/04/2024Dental caries on pit and fissure surface penetrating into dentin (ICD-10 - K02.52) 08/19/2024ttention deficit hyperactivity disorder (ADHD), combined type (ICD-10 - F90.2)08/20/2024Fibromyalgia (ICD-10 - M79.7)08/29/2024irth control counseling (ICD-10 - Z30.09)08/22/2024Lupus (ICD-10 - M32.9)Today we discussed symptoms that patient has been experiencing. Based on the symptoms and presentation, we will start by ordering lab work and once I have results I will contact patient so we can discuss results and next steps04/10/2025ttention deficit hyperactivity disorder (ADHD), combined type (ICD-10 - F90.2)Patient will discontinue Vyvance at this time while taking Adipex for weight loss. Gunner Wallace was notified of patients decision to discontinue Vyvance and starting Adipex. Cancellation of Vyvance script sucessful. Advised patient to continue following with . Patient verbalizes understanding.08/22/2024rthralgia of multiple joints (ICD-10 - M25.50)Continue medication as discussed and making better choices and lifestyle changes. Encouraged to gently push yourself with increasing activity and trying healthy lifestyle options. FOllow up in 1 month as woffakjyq65/14/2025ipolar 1 disorder (ICD-10 - F31.9) Refills of alprazolam and Vyvanse are on hold until patient can provide urine sample for [facility] screen testing. Patient will continue current treatment plan. Patient verbally acknowledges understanding instructions including medication education and has no further questions comments or concerns at this time. . Follow in 1 Month . Recommended treatment for Bipolar disorder includes FDA approved and OFF label medications: second generation antipsychotics and mood stabilizers. Discussed life threatening side effect of Lamotrigine. Pt is to monitor for new skin rashes or sensation of a sunburn or itchiness or redness, mouth sores or sores in mucus membranes, and call provider immediately and or go to ER, and stop the medication. Second generation antipsychotic medications can cause headache, drowsiness, agitation, dizziness, nausea, or extrapyramidal symptoms such as tremors, muscle spasms, slowness of movement or jerkingof muscles. . Stable . The patient verbalizes understanding with all questions answered thoroughly and is in agreement with treatment plan. . Continue current treatment. Call for problems . GOALS: . Maintain medication regimen . _Improve mood stability . _Improve anxiety control . _Improve social and interpersonal functioning . Patient/Guardian will call sooner if symptoms worsen. Patient understands to go to ER if needed if symptoms become severe. . Crisis Intervention plan was discussed and agreed upon. Patient/Guardian will call 911 in case of emergency. Emergency contact information was provided to the patient/guardian. . Pharmacological management: . Alternative medication plans were discussed with the patient/guardian. All relevant side effects and potential adverse effects were discussed with the patient/guardian. Standard cautions and potential benefits were discussed. Patient/Guardian consented to the start/continuation of the treatment. Discussed seriousness of taking benzodiazepine medication daily and as needed, risks and benefits discussed including risk of addiction and accidental . Pt verbalized understanding. . High risk medications are drugs that have a heightened risk of causing significant patient harm when they are used in error. High risk medicines include medicines: with a low therapeutic index. that present a high risk when administered by the wrong route or when other system errors occur. Please notify provider for any concerns about your medications. . 07/01/2024ttention deficit hyperactivity disorder (ADHD), combined type (ICD-10 - F90.2)01/03/2025ttention deficit hyperactivity disorder (ADHD), combined type (ICD-10 - F90.2)12/02/2024ttention deficit hyperactivity disorder (ADHD), combined type (ICD-10 - F90.2)11/28/2024Partial loss of teeth, unspecified cause, class I (ICD-10 - K08.401)11/28/2024Encounter for dental examination and cleaning with abnormal findings (ICD-10 - Z01.21)08/22/2024Sjogren's syndrome, with unspecified organ involvement (ICD-10 - M35.00)09/11/2024Iron deficiency (ICD-10 - E61.1)Pt labs discussed and patient is suffering from vitamin deficiencies and insufficiencies. This may be contributing to some of the symptoms that she has been experiencing. Will order supplements for the patient to take and we can recheck her labs in 9-12 months after starting treatment. We will still follow up with patient in 3 months for her chronic care for her DM 5Bipolar 1 disorder (ICD-10 - F31.9)06/27/2024Encounter for dental examination and cleaning with abnormal findings (ICD-10 - Z01.21)12/24/2024 Screening for STD (sexually transmitted disease) (ICD-10 - Z11.3)Culture taken in office. Discussed safe sex practices. Treatment plan is based off symptoms and exposure. Will contact you even if results regardless of results, which may take up to a week to get back. No sexual contact until we get the results back is recommended. Patient verbalizes understanding.5Bipolar 1 disorder (ICD-10 - F31.9)02/27/2025Viral illness (ICD-10 - B34.9)Symptoms appear viral today. Continue Tylenol/ibuprofen for general discomfort. Encourage fluids. Sy mptoms should improve within the next few days. Encouraged lots of rest. If no improvement of symptoms in 14 days call primary our office to discuss antibiotic therapy. Patient verbalizes understanding.06/09/2025Hyperinsulinemia (ICD-10 - E16.1)05/13/2025Neuropathy (ICD-10 - G62.9)10/24/2024Hyperinsulinemia (ICD-10 - E16.1)Start medication as discussed and making better choices and lifestyle changes. Encouraged to gentlypush yourself with increasing activity and trying healthy lifestyle options. FOllow up in 1 month as ojwfauhrg84/16/2025 Hyperinsulinemia (ICD-10 - E16.1) Discussed with patient the prescribing rules for Adipex in [place]. Adipex is controlled and the patient must return every 30 days for a weight check and medication refill. Any failure to do so will result in termination of the treatment period and the patient must wait 6 months to restart. The patient is to report any side effects, especially if any chest pain, palpitations, elevated blood pressureor anxiety occur. Discussed patient may NOT take Vyvance with Adipex, and failure to comply will result in termination of the treatment plan. Discussed importance of intake and how many calories to consume a day to continue to lose weight. We also discussed increasing exercise, recommended to exercise at least 30 minutes every single day.Patient voiced understanding. Starting Weight 04/10/25: 203 lbs 05/13/2025Recurrent UTI (ICD-10 - N39.0)Patient has history of frequent UTIs. Was started on Methenamine Hippurate. She states she started taking this 2 weeks ago. She does notice mild dizziness after taking this. Discussed taking it at nighttime before bed to see if her symptoms subside. She complains of mild urinary urgency and pressure but denies any hematuria, dysuria, or fever. Will recheck urine for UTI at next appointment.04/10/2025Neuropathy (ICD-10 - G62.9) Improved with medication but still room for improvement, gabapentin. OARRS reviewed and compliant. Will increase dose and adjust to TID. If you develop any pain, swelling, change in color of the LE, go to the ER. Follow up in 1 month to detemine effectivness of medication. Patient verbalizes understanding.12/24/2024 Pain of both breasts (ICD-10 - N64.4)Discussed additional imaging based on symptoms and family history.09/11/2024UTI symptoms (ICD-10 - R39.9)01/28/2025 Possible (ICD-10 - Z32.00)Patient requesting urine preganncy test due to engaging in unprotected sexual intercourse. Negativeresult.01/28/2025Foul smelling urine (ICD-10 - R82.90)08/22/2024bnormal thyroid blood test (ICD-10 - R79.89)12/24/2024Lymph node enlargement (ICD-10 - R59.9)Take medication as prescribed. Swollen lymph nodes likley bacterial based on symptoms and physical examination. Follow up if symptoms persist or worsen. Patient verbalizes understanding.08/22/2024Neuropathy (ICD-10 - G62.9)08/22/2024OtherPt received copy of the 2 telephone encounters today in office. - she said someone had initially told her no - but this is her medical records and her rework machine operator advised her she has a right to her avjaqbx6309/11/2024OtherBody Mass Index: Care Instructions material was published, Body Mass Index: Care Instructions material was vpcrwib6010/01/2024OtherBody Mass Index: Care Instructions material was published, Body Mass Index: Care Instructions material was odvmkft6310/24/2024 OtherBody Mass Index: Care Instructions material was published, Body Mass Index: Care Instructions material was qasyiwv0204/29/2025OtherBody Mass Index: Care Instructions material was printed, Quitting Tobacco: Care Instructions material was jfgxeuq7905/13/2025OtherBody Mass Index: Care Instructions material was published, Body Mass Index: Care Instructions material was published Plan Of Treatment Pending Test Test Name Order Date HgbA1c 03/27/2025 HgbA1c 05/28/2024 Insulin Lvl 03/27/2025 US Breast Unilateral Rt Complete 025 US Breast Unilateral Lt Complete 025 MA Mamm Diag w/CAD if perf and 3D Errol Next Appt Details Provider Name:Stacey eddy, 06/25/2025 11:00:00 AM, [address] [place], [address], Insurance Providers Payer Name Payer Address Payer Phone Subscriber Number Group Number Insured Name Patient Relationship to Insured Coverage Start Date Coverage End Date [employer] [place] Medicaid [address] [place] [address] [id number] BANDAR BRUNSONelf - patient is the pjhhmxj3307/27/2022[facility] [address] [place] [id number], TIPHANIESelf - patient is the ewdotrz1607/27/2022H [employer] [place] MedicaidPO [address] [place] [id number], TIPHANIESelf - patient is the insured 07/27/2022[facility] [address] [place] [phone] [id number], TIPHANIESelf - patient is the taqtyac3707/27/2022ental [employer] [place] [address] [place] [phone] [id number], TIPHANIESelf - patient is the xoysren2107/27/2022ental [facility] [address] [place] [id number], TIPHANIESelf - patient is the txdwber9407/27/2022 Medications Administered Medication Instructions Date of Administration Dosage Notes Kenalog 0 mgRocephin 500 mg4500 pgOCLIEUF75/01/310403 mL Medical (General) History Medical History History ICD Code Hep C + NeuropathyChronic hepatitis CB18.2URI (upper respiratory infection)J06.9Diarrhea R19.7Sjogren's syndrome with peripheral nervous system cqqylrcjqwbN07.06 Maxillary sinusitis, unspecified udppljqggfV83.0lupusHospitalization History Reason Date(Month/Year) Childbirth x4 Anxiety07/19
[2025-06-22 19:10] LABS: SARS-CoV-2 Ag POSITIVE (NEGATIVE)
[2025-06-22 19:16] LABS: Hematocrit 42.2 % (36.0-48.0); Hemoglobin 13.7 g/dL (12.0-16.0); Immature Granulocytes Abs Auto 0.01 10^3/uL (0.00-0.03); Immature Granulocytes Pct Auto 0.3 % (0.0-0.5); Lymphocytes Absolute Auto 1.6 10^3/uL (1.2-3.8); Mean Corpuscular HGB Conc 32.5 g/dL (29.9-35.2); Mean Corpuscular Hemoglobin 27.7 pg (26.7-34.0); Mean Corpuscular Volume 85.4 fL (81.0-99.0); Platelet Count 254 10^3/uL (150-450); Red Blood Count 4.94 10^6/uL (4.20-5.40); White Blood Count 3.7 10^3/uL (4.0-11.0)
[2025-06-22 19:17] LABS: Glucose Urine UA NEGATIVE (NEGATIVE)
[2025-06-22 19:26] VITALS: BP 112/87; PULSE 115; O2SAT 98
[2025-06-22 19:26] LABS: Cast Seen? NONE SEEN #/LPF (NONE SEEN); Crystals Seen? None Seen #/HPF (None Seen); Urine Culture Indicated YES-FRMC
[2025-06-22 19:29] LABS: Alanine Aminotransferase 183 U/L (14-59); Albumin Globulin Ratio 0.9; Albumin Level 3.7 g/dL (3.4-5.0); Alkaline Phosphatase 88 U/L (46-116); Anion Gap 15.0; Aspartate Amino Transferase 145 U/L (15-37); Blood Urea Nitrogen 7.0 mg/dL (7.0-18.0); Calcium 9.0 mg/dL (8.5-10.1); Carbon Dioxide 26.6 mmol/L (21.0-32.0); Chloride 103 mmol/L (98-107); Estimated GFR (African America >60 (>=60 mL/min/1.73m^2); Estimated GFR (Non-African Ame 56 (>=60 mL/min/1.73m^2); Globulin 4.3 g/dL; Glucose 104 mg/dL (74-106); Potassium 3.6 mmol/L (3.5-5.1); Sodium 141 mmol/L (136-145); Total Protein 8.0 g/dL (6.4-8.2)
--- NOTE | 2025-06-22 19:29 | PC.NURSE ---
this patient awake and alert sitting upright on the bed, asking when is the dr is coming in to see me? this patient was informed that call of to [facility] for your records, and waiting on all of the paper work from your visit. this patient shows no signs of visible distress. this patient asking for pain medication, i told her that Dr Ames will been i to see and he is the to ask about pain medication
== END 2025-06-22 20:59 | disposition home or self-care (01) ==
PROVIDERS: Emergency Provider Student in an Organized Health Care Education/Training Program
DX: N39.0 Urinary tract infection, site not specified (principal); U07.1 COVID-19
CPT/HCPCS: 36415; 80053; 81001; 84703; 85025; 87086; 87804; 87811; 99283; 99285